=== PATIENT | female | born 1965 | race Caucasian/White ===

== ENCOUNTER → 2016-07-29 | Outpatient (CLI) | payer OTHER ==
--- NOTE | 2016-08-01 08:04 | MR ---
EXAMINATION TYPE: MR brain wo/w con DATE OF EXAM: 07/29/2016 3:02 PM COMPARISON: MRI brain July 25, 2015 outside reviewed on outside PACS system. HISTORY: headache, vertigo, and white matter changes all per order. Additional symptoms of dizziness per patient. TECHNIQUE: Multiplanar, multisequence images of the brain and brainstem is performed without and with IV contras t, utilizing 16 mL intravenous MultiHance gadolinium contrast is administered intravenously. Demyeli nating disease protocol with additional Sagittal Flair sequence performed. FINDINGS: T2 Lesions Present : Yes Approximate Number of Lesions: 15-20 Locations Identified : Scattered predominantly deep white matter lesions. Size of Reference Lesion(s): 1. 0.5 cm x 0.3 cm x 0.4 cm on axial image 21 and sagittal image 7 left frontal subcortical lesion o r 2 adjacent lesions stable or slightly more prominent. Enhancing Lesion(s) Present: No Change from Prior: Suspect slight increase in number versus prior. Diffusion weighted images demonstrate no evidence of a recent infarct or other diffusion abnormality. There is no worrisome extra-axial fluid collection. The ventricular system and cisternal spaces ar e normal in size and appearance. The brain volume is age appropriate. Midline structures demonstrate normal morphology. The craniocervical junction appears within normal limits. Post contrast images demonstrate no abnormal enhancement. The dural venous sinuses appear pa tent . There is moderate mucosal thickening involving ethmoid sinuses bilaterally redemonstrated. The globes are intact bilaterally. IMPRESSION: Mild nonspecific white matter changes felt likely slightly increased in number versus guilherme or exam as more lesions are identified or felt present. No new enhancing lesions are seen.
== END | disposition home or self-care (01) ==
LOC: RADMRIMAIN 13:34
PROVIDERS: ATTEND Psychiatry & Neurology Neurology
DX: R90.82 White matter disease, unspecified (principal)
CPT/HCPCS: 70553; A9577

== ENCOUNTER 2016-08-04 06:51 | Day surgery (SDC) | payer OTHER ==
[2016-08-01 10:41] VITALS: BMI 32.9
[~2016-08-04 06:51] MED LIST: LACTATED RINGERS 1,000 ML IV SCH
[2016-08-04 07:07] VITALS: RESP 18
[2016-08-04] MEDS ORDERED: IV FLUID CONTINUATION 1,000 ML IV ONE (07:07)
[2016-08-04] MEDS ORDERED: PROPOFOL 10 MG/ML 20 ML VIAL IV ONE (07:39)
--- NOTE | 2016-08-04 07:45 | P.GSHP ---
History of Present Illness H&P Date: 08/04/16 Chief Complaint: GERD This a 51-year-old female who's had long-standing problems with reflux esophagitis. Patient presents today for EGD. - Constitutional Constitutional: Reports as per HPI Past Medical History Additional Past Medical History / Comment(s): vertigo, motion sickness History of Any Multi-Drug Resistant Organisms: None Reported Past Surgical History: Cholecystectomy Additional Past Surgical History / Comment(s): colonscopy ; EGD Past Anesthesia/Blood Transfusion Reactions: Motion Sickness, Postoperative Nausea & Vomiting (PONV) Past Psychological History: No Psychological Hx Reported Smoking Status: Current every day smoker Past Alcohol Use History: Rare Additional Past Alcohol Use History / Comment(s): smoke: "about 3/4 of a ppd" Past Drug Use History: Marijuana Additional Drug Use History / Comment(s): daily - Past Family History Mother Family Medical History: No Reported History Father Family Medical History: Cancer Additional Family Medical History / Comment(s): CA: lung Medications and Allergies Home Medications Medication Instructions Recorded Confirmed Type HYDROcodone/APAP 10-325MG [[place] 1 tab PO Q4HR PRN 08/01/16 08/04/16 History 10-325] Allergies Allergy/AdvReac Type Severity Reaction Status Date / Time No Known Allergies Allergy Verified 08/04/16 07:04 Surgical - Exam Vital Signs Pulse Resp BP Pulse Ox 67 18 125/79 98 08/04/16 07:05 08/04/16 07:05 08/04/16 07:05 08/04/16 07:05 - General well developed, no distress - Eyes PERRL - ENT normal pinna - Neck no masses - Respiratory normal expansion - Cardiovascular Rhythm: regular - Abdomen Abdomen: soft, non tender Assessment and Plan Plan: GERD. We'll perform EGD.
--- NOTE | 2016-08-04 07:52 | P.OP ---
Date of Procedure: 08/04/16 Preoperative Diagnosis: GERD Postoperative Diagnosis: Hiatal hernia Esophagitis Procedure(s) Performed: EGD Anesthesia: MAC Surgeon: Gonzalo Claire Pathology: other (Esophagus) Condition: stable Disposition: PACU Description of Procedure: Patient's placed on the endoscopy table in the lateral position. She received IV sedation. The gastric scope was then placed oropharynx and passed into the esophagus and into the stomach. The scope was then placed through the pylorus. The first and second portion of the duodenumAppeared normal. Scope was then brought back the antrum and this appeared appeared normal. The scope was then retroflexed and the remainder of the stomach appeared normal. There was a moderate size hiatal hernia. The GE junction was at 38 cm. The distal esophagus was mildly inflamed and a biopsies performed. The proximal esophagus appeared normal. Scope was then withdrawn from patient.
[2016-08-04 08:31] VITALS: BP 114/66; PULSE 66
== END 2016-08-04 08:41 | disposition home or self-care (01) ==
LOC: ORWHC2ENDO 06:51
PROVIDERS: ATTEND Surgery
DX: K21.0 Gastro-esophageal reflux disease with esophagitis (principal); K44.9 Diaphragmatic hernia without obstruction or gangrene; F17.200 Nicotine dependence, unspecified, uncomplicated; Z79.891 Long term (current) use of opiate analgesic
CPT/HCPCS: 88305; 43239; J2704

== ENCOUNTER → 2016-08-11 | Outpatient (CLI) | payer OTHER ==
--- NOTE | 2016-08-12 08:41 | MM ---
Reason for exam: screening (asymptomatic). Last mammogram was performed 1 year ago. History: Patient is postmenopausal and has history of other cancer at age 45. Family history of premenopausal breast cancer in maternal aunt at age 38. Benign left mammotome panel of the left breast, September 09, 2011. Took hormonal contraceptives for 6 years. Physical Findings: A clinical breast exam by your physician is recommended on an annual basis and results should be correlated with mammographic findings. MG Screening Mammo w CAD Bilateral CC and MLO view(s) were taken. Prior study comparison: August 06, 2015, bilateral MG screening mammo w CAD. August 04, 2014, bilateral MG screening mammo w CAD. August 02, 2013, bilateral digital screening mammo w/CAD. There are scattered fibroglandular densities. Previous mammotome biopsy in the left breast. No significant changes when compared with prior studies. ASSESSMENT: Negative, BI-RAD 1 RECOMMENDATION: Routine screening mammogram of both breasts in 1 year.
== END | disposition home or self-care (01) ==
LOC: RADMAMWWP 13:32
PROVIDERS: ATTEND Family Medicine
DX: Z12.31 Encounter for screening mammogram for malignant neoplasm of breast (principal); Z80.3 Family history of malignant neoplasm of breast

== ENCOUNTER 2016-08-18 06:27 | Observation (INO) | payer OTHER ==
[2016-08-15 09:19] VITALS: BMI 32.9
[~2016-08-18 06:27] MED LIST changes: +DEXAMETHASONE SOD PHOSPHATE 10 MG/ML 1 ML VIAL IV ONE; +HEPARIN SODIUM,PORCINE 5,000 UNIT/ML 1 ML VIAL SQ ONE; -LACTATED RINGERS 1,000 ML IV SCH; +MIDAZOLAM 2 MG/2 ML VIAL IV PRN; +ONDANSETRON 4 MG/2 ML VIAL IVP ONE; +ceFAZolin 2 GM in SODIUM CHLORIDE 0.9% 100 ML IVPB ONE
[2016-08-18] MEDS ORDERED: LIDOCAINE 1% 20 ML VIAL (10MG/ML) FOR IV START INTRADERMA ONE (07:10)
[2016-08-18] MEDS ORDERED: SCOPOLAMINE 1.5MG/72HR PATCH TRANSDERM ONE (07:15)
[2016-08-18 07:22] LABS: Basophils # (A) 0.1 k/uL (0-0.2); Basophils % (A) 1 %; CH 31.8; Eosinophils # (A) 0.3 k/uL (0-0.7); Eosinophils % (A) 3 %; HCT 43.1 % (34.0-46.0); HDW 2.24; HGB 14.1 gm/dL (11.4-16.0); Luc # (Auto) 0.35; Luc % (Auto) 4; Lymphocytes # (A) 2.4 k/uL (1.0-4.8); Lymphocytes % (A) 26 %; MCH 30.6 pg (25.0-35.0); MCHC 32.6 g/dL (31.0-37.0); MCV 93.8 fL (80.0-100.0); Mean Platelet Volume 6.8; Monocytes # (A) 0.6 k/uL (0-1.0); Monocytes % (A) 7 %; Neutrophils # (A) 5.3 k/uL (1.3-7.7); Neutrophils % (A) 59 %; RDW 13.1 % (11.5-15.5); WBC (Perox) 8.29
[2016-08-18] MEDS: LACTATED RINGERS 1,000 ML IV SCH (07:23)
--- NOTE | 2016-08-18 07:52 | P.GSHP ---
History of Present Illness H&P Date: 08/18/16 Chief Complaint: GERD This a 51-year-old female referred from Dr. Eliceo Ness. The patient has had long-standing problems with reflux esophagitis. The patient underwent recent EGD is found have evidence of esophagitis. Patient has been well informed on the procedure of laparoscopic Sánchez fundoplication. The patient is aware the risk of the conversion to the open procedure, risk of injury to the stomach, liver and spleen. The patient is also a risk of recurrent GERD and dysphagia symptoms. The patient understands there is a postoperative diet of full liquids for 2 weeks after surgery. - Constitutional Constitutional: Reports as per HPI Past Medical History Past Medical History: COPD, GERD/Reflux Additional Past Medical History / Comment(s): vertigo, motion sickness History of Any Multi-Drug Resistant Organisms: None Reported Past Surgical History: Cholecystectomy, Tubal Ligation Additional Past Surgical History / Comment(s): coloscopy with polyp removal "they remove 2-3 everytime i have this done" Past Anesthesia/Blood Transfusion Reactions: No Reported Reaction, Motion Sickness, Postoperative Nausea & Vomiting (PONV) Past Psychological History: No Psychological Hx Reported Smoking Status: Current every day smoker Past Alcohol Use History: None Reported Additional Past Alcohol Use History / Comment(s): smoke: "about 3/4 of a ppd" Past Drug Use History: Marijuana - Past Family History Mother Family Medical History: No Reported History Father Family Medical History: Cancer Additional Family Medical History / Comment(s): CA: lung Medications and Allergies Home Medications Medication Instructions Recorded Confirmed Type HYDROcodone/APAP 10-325MG [[place] 1 tab PO Q8HR PRN 08/01/16 08/15/16 History 10-325] Allergies Allergy/AdvReac Type Severity Reaction Status Date / Time No Known Allergies Allergy Verified 08/18/16 06:47 Surgical - Exam Vital Signs Temp Pulse Resp BP Pulse Ox 98.4 F 62 16 130/84 98 08/18/16 06:54 08/18/16 06:54 08/18/16 06:54 08/18/16 06:54 08/18/16 06:54 - General well developed, no distress - Eyes PERRL - ENT normal pinna - Neck no masses - Respiratory normal expansion - Cardiovascular Rhythm: regular - Abdomen Abdomen: soft, non tender Results - Labs 08/18/16 07:10 Assessment and Plan Plan: GERD. We'll perform laparoscopic cholecystectomy.
[2016-08-18] MEDS ORDERED: VECURONIUM 10 MG VIAL IV ONE (08:00)
[2016-08-18] MEDS ORDERED: KETOROLAC 30 MG/ML 1 ML VIAL ONE (08:00)
[2016-08-18] MEDS ORDERED: PROPOFOL 10 MG/ML 20 ML VIAL IV ONE (08:00)
[2016-08-18] MEDS ORDERED: SUCCINYLCHOLINE CHLORIDE 100 MG/5 ML SYR IV ONE (08:00)
[2016-08-18] MEDS ORDERED: fentaNYL (PF) 50 MCG/ML 2 ML AMP ONE (08:00)
[2016-08-18] MEDS ORDERED: MIDAZOLAM 2 MG/2 ML VIAL ONE (08:00)
[2016-08-18] MEDS ORDERED: HYDROmorphone (PF) 1 MG/ML ONE (08:00)
[2016-08-18] MEDS ORDERED: LIDOCAINE 1% INJ 10MG/ML (20 ML MDV) ONE (08:00)
[2016-08-18] MEDS ORDERED: GLYCOPYRROLATE 0.2 MG/ML 2 ML VIAL ONE (08:00)
[2016-08-18] MEDS ORDERED: NEOSTIGMINE 1 MG/ML 10 ML VIAL ONE (08:00)
[2016-08-18] MEDS ORDERED: BUPIVACAIN-EPI 0.25%-1:200,000 30 ML VIAL SQ ONE (08:38)
[2016-08-18] MEDS ORDERED: NALOXONE 0.4 MG/ML 1 ML VIAL IV PRN (09:13)
[2016-08-18] MEDS ORDERED: ACETAMINOPHEN TAB 325 MG TAB PO PRN (09:13)
[2016-08-18] MEDS ORDERED: traMADol 50 MG TAB PO PRN (09:13)
[2016-08-18] MEDS ORDERED: HYDROcodone/APAP 5-325MG 1 EACH TAB PO PRN (09:13)
[2016-08-18] MEDS ORDERED: HYDROmorphone 1 MG/ML 1 ML SYRINGE IVP PRN (09:13)
[2016-08-18] MEDS ORDERED: ONDANSETRON 4 MG/2 ML VIAL IVP PRN (09:13)
--- NOTE | 2016-08-18 09:17 | P.OP ---
Date of Procedure: 08/18/16 Preoperative Diagnosis: GERD Postoperative Diagnosis: GERD Procedure(s) Performed: Laparoscopic Sánchez fundoplication Anesthesia: MAC Surgeon: Gonzalo Claire Estimated Blood Loss (ml): 5 Pathology: none sent Condition: stable Disposition: PACU Description of Procedure: The patient was placed on the operating table in the supine position. The patient received general anesthesia. And was placed in dorsal lithotomy position. The patient was prepped and draped in the usual sterile fashion. The skin incision sites were anesthetized with 1% local Xylocaine. The skin was incised in the left periumbilical area and then using a blade less 5 mm trocar under direct visualization panel cavity was entered. After adequate insufflation the laparoscope was then placed into the peritoneal cavity. Next a 5 mm trochars placed in the right epigastric position. Another 5 millimeter trocar the right lateral position. Another 5 millimeter trocar in the left lateral position a 5 mm trocar is placed in the left epigastric position. And then the initial 5 mm trocar was exchanged for a 10 mm trocar. The left lateral lobe liver was retracted. The hernia was seen. The crural defect was then dissected using the Harmonic scissors device. A 360 crural dissection was performed the esophagus stomach was reduced back into the peritoneal Cavity. The crural defect was then closed using 2-0 Ethibond suture. Next the fundus of the stomach was mobilized using the [place] scissors device. and then a 58-[place] bougie dilator was placed oropharynx passed into the esophagus and stomach the fundal plication wrap was then performed by grasping the fundus posteriorly and bringing it around the esophagus and stomach fundoplication was then performed using 2-0 Ethibond suture. Care was taken that the fundal location rested over top of the intra-abdominal esophagus. There was no injury seen to the stomach or esophagus. The dilator was then withdrawn. The abdomen was irrigated there is no bleeding seen. The trochars were then withdrawn and then skin incision sites were closed using 3-0 Monocryl suture Steri-Strips are applied. Patient thought procedure well and sent to recovery room in stable condition.
[2016-08-18] MEDS: LACTATED RINGERS 1,000 ML IV ONE ×2 (09:50→10:06)
[2016-08-18] MEDS: HYDROmorphone 1 MG/ML 1 ML SYRINGE IVP PRN ×2 (09:59→10:10)
[2016-08-18] MEDS: KETOROLAC 30 MG/ML 1 ML VIAL IVP SCH ×3 (11:11→22:18)
--- NOTE | 2016-08-18 14:06 | P.CONS ---
History of Present Illness - Reason for Consult Consult date: 08/18/16 Medical management Requesting physician: Gonzalo Claire - History of Present Illness A 51-year-old female being seen at the request of the attending for medical eval for medical management. Patient is well known to Dr. Caitlyn whaley. Patient is postop laparoscopic sánchez fundoplication for persistent symptomatic esophageal reflux disease failed outpatient treatment. Patient states that "for most of my life since age of 16 I have been bothered by reflux symptoms have tried various [id number] products with no relief patient presented on the day of admission to undergo an elective surgical approach to addressing symptomatic esophageal reflux. Patients being seen postoperatively indicates pain medication effective for pain control. Patient states passing gas no stool with some abdominal discomfort at the surgical site abdomen soft surgical dressings dry Review of Systems Essentially unremarkable except as mentioned in the present illness Past Medical History Past Medical History: COPD, GERD/Reflux Additional Past Medical History / Comment(s): vertigo, motion sickness History of Any Multi-Drug Resistant Organisms: None Reported Past Surgical History: Cholecystectomy, Tubal Ligation Additional Past Surgical History / Comment(s): coloscopy with polyp removal "they remove 2-3 everytime i have this done" Past Anesthesia/Blood Transfusion Reactions: No Reported Reaction, Motion Sickness, Postoperative Nausea & Vomiting (PONV) Past Psychological History: No Psychological Hx Reported Smoking Status: Current every day smoker Past Alcohol Use History: None Reported Additional Past Alcohol Use History / Comment(s): smoke: "about 3/4 of a ppd" Past Drug Use History: Marijuana - Past Family History Mother Family Medical History: No Reported History Father Family Medical History: Cancer Additional Family Medical History / Comment(s): CA: lung Medications and Allergies Home Medications Medication Instructions Recorded Confirmed Type HYDROcodone/APAP 10-325MG [[place] 1 tab PO Q8HR PRN 08/01/16 08/18/16 History 10-325] Allergies Allergy/AdvReac Type Severity Reaction Status Date / Time No Known Allergies Allergy Verified 08/18/16 10:45 Physical Exam Vitals: Vital Signs Temp Pulse Pulse Resp BP Pulse Ox 08/18/16 10:30 70 16 140/79 90 L 08/18/16 10:11 68 16 158/70 98 08/18/16 09:56 95 16 161/72 92 L 08/18/16 09:41 60 16 163/88 100 04/13/17 09:26 97.4 F L 95 16 166/78 96 08/18/16 06:54 98.4 F 62 16 130/84 98 Intake and Output 08/17/16 08/18/16 08/18/16 22:59 06:59 14:59 Intake Total 1300 Output Total 5 Balance 1295 Intake: IV 1300 Output: Estimated Blood Loss 5 GENERAL APPEARANCE: 51-year-old female patient is alert, oriented, in no acute distress. Resting in bed appears in no acute distress VITAL SIGNS: Reviewed HEENT: Head is normocephalic and atraumatic. Pupils are equal and reactive. The nares are patent. Oropharynx is clear without lesions. NECK: Supple without lymphadenopathy. Traches midline. HEART: S1, S2. Regular rate and rhythm. Denying chest pain LUNGS: No crackles or wheezes are heard. Adequate air movement bilaterally no shortness of breath no cough ABDOMEN: Soft, dressings to surgical site dry slight tenderness at surgical site nondistended with good bowel sounds. No peritoneal signs. No palpable organomegaly or masses. No stool states passing gas EXTREMITIES: Normal skin color and turgor. No cyanosis, rash, ulceration, clubbing or edema. Radial pedal pulses are 2/4 bilaterally. NEUROLOGICAL: No focal deficits. Strength and sensation are grossly intact. Results CBC & Chem 7: 08/18/16 07:10 Assessment and Plan Plan: Impression Postop laparoscopic Sánchez fundoplication done on August 18 for symptomatic esophageal reflux disease History of esophageal reflux Current every day smoker greater than a 20 year history three fourths of a pack daily with probable COPD undiagnosed History of colon polyps colonoscopy done July 2015 unremarkable findings Plan Continue postop surgical care per surgical service Will follow and address medical issues as they arise DVT and GI prophylaxis Increase activity to the level of tolerance IV fluid for hydration Thank you for this kind referral and the opportunity participate in the medical care of your patient depending on progress further recommendations will be made The above dictated assessment and findings were discussed with dr concepcion covering for Dr. Caitlyn Rhodes and the plan of care have been dictated as directed. Lilian Mckeon nurse practitioner acting as a scribe for dr concepcion
--- NOTE | 2016-08-18 15:51 | FL ---
EXAMINATION TYPE: FL UGI w esophagus DATE OF EXAM: 08/18/2016 3:44 PM COMPARISON: NONE HISTORY: Post Marvel fundoplication TECHNIQUE: A single contrast UGI study is performed. FINDINGS: Contrast passes from the distal esophagus through the Marvel fundoplication with mild hesit luke. No extravasation of contrast is evident. No free air is noted during this examination. Overhead radiographs were obtained which are unremarkable. IMPRESSIONS: 1. Normal post Marvel fundoplication without obstruction or hesitancy. No extravasation.
[2016-08-18 22:24] VITALS: RESP 18
[2016-08-19] MEDS ORDERED: KETOROLAC 30 MG/ML 1 ML VIAL ONE (04:20)
[2016-08-19] MEDS: KETOROLAC 30 MG/ML 1 ML VIAL IVP SCH ×2 (07:39→10:15)
[2016-08-19] MEDS: LACTATED RINGERS 1,000 ML IV SCH (10:53)
[2016-08-19 13:11] VITALS: BP 115/76; PULSE 70; TEMP 98.3
--- NOTE | 2016-08-19 15:11 | P.DS ---
Providers Date of admission: 08/18/16 22:55 Expected date of discharge: 08/19/16 Attending physician: Gonzalo Claire Consults: 08/18/16 09:13 Consult Physician Routine Consulting Provider: Eliceo Brady Reason/Comments: Medical management Do you want consulting provider notified?: Yes Primary care physician: [facility] Course: This a 51-year-old female who underwent laparoscopic Sánchez fundal plication yesterday. Patient did quite well postoperatively.. Please see chart for details. Procedures: Laparoscopic Sánchez fundal plication Patient Condition at Discharge: Good Plan - Discharge Summary New Discharge Prescriptions: Docusate [Colace] 100 mg PO BID #20 capsule HYDROcodone/APAP 7.5-325MG [[place] 7.5] 1 each PO Q4H PRN #60 tab PRN Reason: Pain Discharge Medication List HYDROcodone/APAP 10-325MG [[place] 10-325] 1 tab PO Q8HR PRN 08/01/16 [History] Docusate [Colace] 100 mg PO BID #20 capsule 08/18/16 [Rx] HYDROcodone/APAP 7.5-325MG [[place] 7.5] 1 each PO Q4H PRN #60 tab 08/18/16 [Rx] Follow up Appointment(s)/Referral(s): Gonzalo Claire MD [STAFF PHYSICIAN] - 09/01/16 2:10 pm Activity/Diet/Wound Care/Special Instructions: Full liquid diet as instructed by [employer]. refer to diet sheet. no straws or carbonation (No Mountain Dew! :) no strenuous activity May shower. leave tape in place to puncture sites. Call office with any fever, chills, increased pain not covered with pain meds, redness or discolored drainage from puncture sites or any concerns. Last received Toradol at 10:15 Discharge Disposition: HOME SELF-CARE
== END 2016-08-19 13:03 | disposition home or self-care (01) ==
LOC: OR 06:27 → 6PED 09:19 → OR 22:54 → 6PED 22:55
PROVIDERS: ADMIT Surgery; ATTEND Surgery
DX: K21.9 Gastro-esophageal reflux disease without esophagitis (principal); F17.200 Nicotine dependence, unspecified, uncomplicated; Z90.49 Acquired absence of other specified parts of digestive tract
CPT/HCPCS: 81025; 85025; 74240; 43280; G0378 ×2; J2250; J1644; J1100; J2710; J0690; J2405; J2001; J3010; J1885 ×2; J1170; J0330; J2704; 96374; 96375

== ENCOUNTER → 2017-08-30 | Outpatient (CLI) | payer OTHER ==
--- NOTE | 2017-08-30 14:48 | XR ---
EXAMINATION TYPE: XR chest 2V DATE OF EXAM: 08/30/2017 COMPARISON: Prior chest x-ray dated 07/24/2013 HISTORY: COPD TECHNIQUE: Frontal and lateral views of the chest are obtained. FINDINGS: There is no focal air space opacity, pleural effusion, or pneumothorax seen. The cardiac silhouette size is stable. The osseous structures are intact. Surgical clips present in the right u pper quadrant. IMPRESSION: No acute cardiopulmonary process. Stable exam.
--- NOTE | 2017-08-31 09:58 | MM ---
Reason for exam: screening (asymptomatic). Last mammogram was performed 1 year and 1 month ago. History: Patient is postmenopausal and has history of other cancer at age 45. Family history of premenopausal breast cancer in maternal aunt at age 38. Benign left mammotome panel of the left breast, September 09, 2011. Took hormonal contraceptives for 6 years. Physical Findings: A clinical breast exam by your physician is recommended on an annual basis and results should be correlated with mammographic findings. MG Screening Mammo w CAD Bilateral CC and MLO view(s) were taken. Prior study comparison: August 11, 2016, bilateral MG screening mammo w CAD. August 06, 2015, bilateral MG screening mammo w CAD. The breast tissue is heterogeneously dense. This may lower the sensitivity of mammography. Left biopsy marker noted. No significant changes when compared with prior studies. ASSESSMENT: Negative, BI-RAD 1 RECOMMENDATION: Routine screening mammogram of both breasts in 1 year.
== END | disposition home or self-care (01) ==
LOC: RADMAMWWP 12:48
PROVIDERS: ATTEND Family Medicine
DX: Z12.31 Encounter for screening mammogram for malignant neoplasm of breast (principal); J44.9 Chronic obstructive pulmonary disease, unspecified; F17.200 Nicotine dependence, unspecified, uncomplicated
CPT/HCPCS: 71046; 77067

== ENCOUNTER → 2018-02-08 | Outpatient (CLI) | payer OTHER ==
--- NOTE | 2018-02-08 10:27 | MR ---
EXAMINATION TYPE: MR lumbar spine wo con DATE OF EXAM: 02/08/2018 COMPARISON: NONE HISTORY: Low back pain TECHNIQUE: T1 and T2 axial and sagittal images of the lumbar spine are submitted. FINDINGS: There is no abnormal signal seen within the visualized spinal cord or paraspinal soft tissu es. Correlate with the numbering system utilized on this exam prior to any surgical intervention At L1-2 there is no disc herniation or canal stenosis. No foraminal encroachment At L2-3 there is mild hypertrophic change of the facets there is circumferential disc bulging and mil d bilateral foraminal encroachment but no disc herniation or canal stenosis At L3-4 there is a broad-based central disc protrusion with a more focal left paracentral disc hernia tion resulting in moderate compression thecal sac. Hypertrophic change of the facets and ligamentum f lavum contribute to central canal stenosis. There is moderate left foraminal encroachment this materi al extending laterally to the left. At L4-5 there is degenerative disc disease with circumferential disc bulging but no disc herniation. There is mild bilateral foraminal encroachment with no central stenosis. Facet arthropathy and ligame ntum flavum hypertrophy noted. At L5-S1 there is advanced facet arthropathy. No disc herniation. No Canal stenosis. Disc desiccation is seen. Circumferential disc bulging greater laterally to the right with mild right-sided foraminal encroachment. IMPRESSION: 1. Correlate with the numbering system utilized on today's exam prior to any surgical intervention. 2. Multilevel degenerative disc disease with disc protrusion and more focal left paracentral disc her niation L3-L4 resulting in compression of the thecal sac, central stenosis and moderate left foramina l encroachment. 3. Multilevel disc bulging resulting in multilevel foraminal encroachment as discussed above.
--- NOTE | 2018-02-08 11:01 | MR ---
EXAMINATION TYPE: MR brain wo/w con DATE OF EXAM: 02/08/2018 COMPARISON: 07/29/2016 HISTORY: MS TECHNIQUE: Multiplanar, multisequence images of the brain and brainstem is performed without and with IV contras t, utilizing 7 mL intravenous Gadavist . FINDINGS: Diffusion weighted images demonstrate no evidence of a recent infarct or other diffusion ab normality The ventricular system and cisternal spaces are normal in size and appearance. The brain v olume is age appropriate. Midline structures demonstrate normal morphology. The craniocervical junction appears within normal limits. Post contrast images demonstrate no abnormal enhancement. The dural venous sinuses appear pa tent. Partially empty sella turcica incidentally noted. There appear to be Thornwaldt cyst in the pos terior nasopharynx. Changes of chronic sinusitis noted. WHITE MATTER: T2 Lesions Present : Yes Approximate Number of Lesions: 15-20 Locations Identified : Scattered predominantly deep white matter lesions. Size of Reference Lesion(s): 1. 0.5 cm x 0.3 cm x 0.4 cm left frontal subcortical lesion or 2 adjacen t lesions stable Enhancing Lesion(s) Present: No Change from Prior: Suspect slight increase in number versus prior. IMPRESSION: 1. Stable nonspecific white matter changes. No interval change in size, number or morphology. No enha ncing lesions. 2. Changes of chronic sinusitis. 3. Multiple Thornwaldt cysts.
== END | disposition home or self-care (01) ==
LOC: RADMRIMAIN 08:35
PROVIDERS: ATTEND Psychiatry & Neurology Neurology
DX: R90.82 White matter disease, unspecified (principal); M48.061 Spinal stenosis, lumbar region without neurogenic claudication; M51.26 Other intervertebral disc displacement, lumbar region; M51.36 Other intervertebral disc degeneration, lumbar region
CPT/HCPCS: 70553; 72148; A9581

== ENCOUNTER → 2018-09-12 | Outpatient (CLI) | payer OTHER ==
--- NOTE | 2018-09-13 11:38 | MM ---
Reason for exam: screening (asymptomatic). Last mammogram was performed 1 year ago. History: Patient is postmenopausal and has history of other cancer at age 45. Family history of premenopausal breast cancer in maternal aunt at age 38. Benign left mammotome panel of the left breast, September 09, 2011. Took hormonal contraceptives for 6 years. Physical Findings: A clinical breast exam by your physician is recommended on an annual basis and results should be correlated with mammographic findings. MG Screening Mammo w CAD Bilateral CC and MLO view(s) were taken. Prior study comparison: August 30, 2017, bilateral MG screening mammo w CAD. August 11, 2016, bilateral MG screening mammo w CAD. The breast tissue is heterogeneously dense. This may lower the sensitivity of mammography. There are benign appearing round calcifications in the right breast. Previous mammotome biopsy in the left breast. There is no discrete abnormality. ASSESSMENT: Benign, BI-RAD 2 RECOMMENDATION: Routine screening mammogram of both breasts in 1 year.
== END ==
LOC: RADMAMWWP 15:47
PROVIDERS: ATTEND Family Medicine
DX: Z12.31 Encounter for screening mammogram for malignant neoplasm of breast (principal)
CPT/HCPCS: 77067

== ENCOUNTER → 2020-09-23 | Outpatient (CLI) | payer OTHER ==
--- NOTE | 2020-09-28 09:35 | MM ---
Reason for exam: screening (asymptomatic). Last mammogram was performed 2 years ago. History: Patient is postmenopausal and has history of other cancer at age 45. Family history of premenopausal breast cancer in maternal aunt at age 38. Benign left mammotome panel of the left breast, September 09, 2011. Took hormonal contraceptives for 6 years. Physical Findings: A clinical breast exam by your physician is recommended on an annual basis and results should be correlated with mammographic findings. MG Screening Mammo w CAD Bilateral CC and MLO view(s) were taken. Prior study comparison: September 12, 2018, bilateral MG screening mammo w CAD. August 30, 2017, bilateral MG screening mammo w CAD. There are scattered fibroglandular densities. Previous mammotome biopsy in the left breast. ASSESSMENT: Benign, BI-RAD 2 RECOMMENDATION: Routine screening mammogram of both breasts in 1 year.
== END | disposition home or self-care (01) ==
LOC: RADMAMWWP 10:49
PROVIDERS: ATTEND Family Medicine
DX: Z12.31 Encounter for screening mammogram for malignant neoplasm of breast (principal); Z80.3 Family history of malignant neoplasm of breast; Z78.0 Asymptomatic menopausal state
CPT/HCPCS: 77067

== ENCOUNTER → 2022-05-09 | Outpatient (CLI) | payer OTHER ==
--- NOTE | 2022-05-09 17:03 | BD ---
EXAMINATION TYPE: Axial Bone Density DATE OF EXAM: 05/09/2022 COMPARISON: BASELINE BONE DENSITY CLINICAL HISTORY: 57 years year old Female. ICD-10 CODE: Z78.0 POST MENOPAUSAL WITHOUT HRT Height: 60.05 Weight: 152 FRAX RISK QUESTIONS: Current Tobacco Use: YES RISK FACTORS HISTORY OF: Postmenopausal woman: YES, AT 51 Hyperparathyroidism: NO Adrenal Insufficiency: NO MEDICATIONS: Prednisone or other steroids: YES, FOR 3 WEEKS AND ON AND OFF IN THE PAST Additional Medications: REFLUX MEDS, Additional History: REFLUX, SICK RIGHT NOW , ON STEROIDS, ORAL AND INHALER EXAM MEASUREMENTS: Bone mineral densitometry was performed using the [employer] System. Bone mineral density as measured about the Lumbar spine is: ----- L1-L4(G/cm2): 1.165 T Score Values are as follows: ----- L1: -0.8 ----- L2: -1.0 ----- L3: 0.2 ----- L4: 0.7 ----- L1-L4: -0.1 Bone mineral density FIRST DEXA STUDY AT [facility] Bone mineral density about the R hip (g/cm2): 0.930 Bone mineral density about the L hip (g/cm2): 0.966 T Score values are as follows: -----R Neck: -0.6 -----L Neck: -0.8 -----R Total: -0.6 -----L Total: -0.3 Bone mineral density FIRST DEXA STUDY AT [facility] FRAX%s: The graph provided illustrates a 9.2%ance for a major osteoporotic fx and a 0.8%ance for the hips probability for fx in 10 years time. IMPRESSION: Normal (Values between +1 and -1 indicate normal bone mass). Consider repeating this study in 5 year s or sooner if there is some new clinical indication. NOTE: T-SCORE=SD OF THE YOUNG ADULT MEAN.
--- NOTE | 2022-05-10 08:45 | MM ---
Reason for Exam: Screening (asymptomatic). Last mammogram was performed 1 year(s) and 8 month(s) ago. Patient History: Menarche at age 10. First Full-Term at age 27. Postmenopausal. Hormonal Contraceptives for 6 years until age 23. 09/09/2011, Benign Core Biopsy on the left side. Maternal aunt had breast cancer, age 38. Risk Values: [place] 5 year model risk: 1.8%. NCI Lifetime model risk: 11.4%. Prior Study Comparison: 08/30/2017 Bilateral Screening Mammogram, [facility]. 09/12/2018 Bilateral Screening Mammogram, [facility]. 09/23/2020 Bilateral Screening Mammogram, [facility]. Tissue Density: There are scattered fibroglandular densities. Findings: Analyzed By CAD. Left breast biopsy clip. There is no suspicious group of microcalcifications or new suspicious mass in either breast. Overall Assessment: Negative, BI-RAD 1 Management: Screening Mammogram of both breasts in 1 year. A clinical breast exam by your physician is recommended on an annual basis and results should be correlated with mammographic findings. [facility] will attempt to contact patient to return for supplemental views and ultrasound if indicated. Electronically signed and approved by: Eduardo Eubanks DO
== END | disposition home or self-care (01) ==
LOC: RADBDWWP 13:30
PROVIDERS: ATTEND Family Medicine
DX: Z12.31 Encounter for screening mammogram for malignant neoplasm of breast (principal); Z80.3 Family history of malignant neoplasm of breast; Z78.0 Asymptomatic menopausal state; Z79.52 Long term (current) use of systemic steroids
CPT/HCPCS: 77067; 77080

== ENCOUNTER → 2022-05-23 | Outpatient (CLI) | payer OTHER ==
--- NOTE | 2022-05-24 11:47 | CT ---
EXAMINATION TYPE: CT abdomen pelvis w con CT DLP: 964 mGycm, Automated exposure control for dose reduction was used. DATE OF EXAM: 05/23/2022 5:06 PM COMPARISON: None CLINICAL INDICATION:Female, 57 years old with history of R10.32 LLQ pain; low abd pain ; bloating, wo rsens throughout the day. TECHNIQUE: Axial CT of the abdomen and pelvis. Sagittal and coronal reformats were created on a [employer] workstation. Contrast used:100ML mL of Isovue 300 with IV Contrast, Oral contrast used: with Oral Contrast FINDINGS: LOWER CHEST: Unremarkable ABDOMEN LIVER: Mild decreased attenuation of the liver parenchyma. GALLBLADDER AND BILE DUCTS: The gallbladder surgically absent. PANCREAS: Unremarkable. SPLEEN: Small splenule is present. ADRENAL GLANDS: Unremarkable. KIDNEYS AND URETERS: No evidence of hydronephrosis or renal calculus. The ureters are unremarkable. PELVIS BLADDER: Unremarkable REPRODUCTIVE: Unremarkable. ABDOMEN & PELVIS STOMACH AND BOWEL: No evidence of bowel obstruction. Gaseous distention of small and large loops of b owel. No obvious transition point. The appendix is normal. There is postsurgical change the gastroeso phageal junction. PERITONEUM/RETROPERITONEUM: No evidence of pneumoperitoneum or free fluid. . VASCULATURE: No evidence of aortic aneurysm. Atherosclerosis of the arterial vasculature. MUSCULOSKELETAL: No acute osseous abnormalities, multilevel disc degeneration changes throughout the spine. LYMPH NODES: No gross evidence for lymphadenopathy. SOFT TISSUE/ABDOMINAL WALL: Small fat-containing umbilical hernia. IMPRESSION: 1. Gaseous mild dilation of small and large loops of bowel. No obvious transition point this concern for small bowel obstruction. Correlate for ileus. Consider dedicated small bowel follow-through if t his concern for partial bowel obstruction. 2. No definitive acute intra-abdominal process to explain the patient's left lower quadrant pain. 3. Post surgical changes to the gastroesophageal junction. 4. Mild hepatic steatosis.
== END | disposition home or self-care (01) ==
LOC: RADCTMAIN 14:25
PROVIDERS: ATTEND Family Medicine
DX: K76.0 Fatty (change of) liver, not elsewhere classified (principal); K63.89 Other specified diseases of intestine; Z98.890 Other specified postprocedural states
CPT/HCPCS: 74177; Q9967 ×2

== ENCOUNTER → 2024-04-18 | Outpatient (CLI) | payer OTHER ==
[2024-04-18 19:13] LABS: Basophils # (A) 0.07 X 10*3/uL (0.00-0.10); Basophils % (A) 0.6 %; Eosinophils # (A) 0.29 X 10*3/uL (0.04-0.35); Eosinophils % (A) 2.6 %; HCT 37.5 % (37.2-46.3); HGB 12.4 g/dL (12.0-15.0); Lymphocytes # (A) 2.24 X 10*3/uL (0.90-5.00); Lymphocytes % (A) 19.9 %; MCH 31.2 pg (27.0-32.0); MCHC 33.1 g/dL (32.0-37.0); MCV 94.5 FL (80.0-97.0); Monocytes # (A) 1.39 X 10*3/uL (0.20-1.00); Monocytes % (A) 12.3 %; NRBC Per 100 WBC 0 X 10*3/uL (0.00-0.01); Neutrophils # (A) 7.12 X 10*3/uL (1.80-7.70); Neutrophils % (A) 63.3 %; Platelet Count 360 X 10*3/uL (140-440); RBC 3.97 X 10*6/uL (4.10-5.20); RDW 12.8 % (11.5-14.5); WBC 11.26 X 10*3/uL (4.50-10.00)
== END | disposition home or self-care (01) ==
LOC: LABPAT 14:32
PROVIDERS: ATTEND Surgery
DX: Z01.818 Encounter for other preprocedural examination (principal)
CPT/HCPCS: 36415; 85025; 86850; 86900; 86901; 93005

== ENCOUNTER 2024-04-22 05:33 | Day surgery (SDC) | payer OTHER ==
[2024-04-22 06:17] VITALS: RESP 16; TEMP 97.4
[2024-04-22] MEDS: LACTATED RINGERS 1,000 ML IV SCH (06:33)
[2024-04-22] MEDS: ACETAMINOPHEN TAB 500 MG TAB PO PRN (06:33)
[2024-04-22] MEDS: DEXAMETHASONE SOD PHOSPHATE 4 MG/ML 1 ML VIAL IV ONE (06:34)
[2024-04-22] MEDS: ONDANSETRON 4 MG/2 ML VIAL IVP ONE (06:34)
[2024-04-22] MEDS: SCOPOLAMINE 1 MG/72 HR PATCH TRANSDERM ONE (06:35)
[2024-04-22] MEDS: LACTATED RINGERS 1,000 ML IV ONE (06:39)
[2024-04-22] MEDS: MIDAZOLAM 2 MG/2 ML VIAL IVP ONE (06:58)
[2024-04-22] MEDS ORDERED: MIDAZOLAM 2 MG/2 ML VIAL IV PRN (07:00)
--- NOTE | 2024-04-22 07:12 | P.ANPRN ---
Procedure Note - Anesthesia - Nerve Block Performed Bilateral Erector Spinae Single Time Out Performed: Yes Date of Procedure: 04/22/24 Procedure Start Time: 06:58 Procedure Stop Time: 07:03 Location of Patient: PreOp Indication: Acute Post-Operative Pain, Analgesia, Requested by Surgeon Sedation Type: Sedate with meaningful contact maintained Preparation: Sterile Prep Position: Prone Catheter: None Needle Types: Pajunk Needle Gauge: 21 Ultrasound used to visualize needle placement: Yes Ultrasound used to observe medication spread: Yes Injectate: 0.5% Ropivacaine (see comment for volume) (Ropiv 20ml+[id number], T11 needle level----Each side) Blood Aspirated: No Pain Paresthesia on Injection Noted: No Image Stored and Saved: Yes Events: Uneventful and Well Tolerated
[2024-04-22] MEDS: HEPARIN SODIUM,PORCINE 5,000 UNIT/ML 1 ML VIAL SQ PRN (07:17)
[2024-04-22] MEDS: LIDOCAINE 1%-EPI 1:100,000 20 ML VIAL SQ ONE ×2 (07:27→07:57)
[2024-04-22] MEDS ORDERED: fentaNYL (PF) 50 MCG/ML 2 ML AMP ONE (07:36)
[2024-04-22] MEDS ORDERED: SUCCINYLCHOLINE CHLORIDE 200 MG/10 ML VIAL IV ONE (07:36)
[2024-04-22] MEDS ORDERED: ROPIVACAINE 5 MG/ML 30 ML VIAL ONE (07:36)
[2024-04-22] MEDS ORDERED: LIDOCAINE 1% INJ 10MG/ML (20 ML MDV) ONE (07:36)
[2024-04-22] MEDS ORDERED: KETAMINE HCL IN 0.9 % NACL 50 MG/5 ML SYRINGE ONE (07:36)
[2024-04-22] MEDS ORDERED: GLYCOPYRROLATE 0.2 MG/ML 2 ML VIAL ONE (07:36)
[2024-04-22] MEDS ORDERED: PROPOFOL 10 MG/ML 20 ML VIAL IV ONE (07:36)
[2024-04-22] MEDS ORDERED: NEOSTIGMINE 1 MG/ML 10 ML VIAL ONE (07:36)
[2024-04-22] MEDS ORDERED: KETOROLAC 15 MG/ML 1 ML VIAL ONE (07:36)
[2024-04-22] MEDS ORDERED: ROCURONIUM 10 MG/ML (5 ML VIAL) IV ONE (07:36)
[2024-04-22] MEDS ORDERED: DEXAMETHASONE SOD PHOSPHATE 4 MG/ML 1 ML VIAL ONE (07:36)
--- NOTE | 2024-04-22 07:43 | P.GSHP ---
History of Present Illness H&P Date: 04/22/24 Chief Complaint: Right inguinal hernia This a 59-year-old female who has complaints of right inguinal pain and mass. Patient was in the office. Patient has reducible right inguinal hernia. She presents today for laparoscopic robotic assisted repair. Past Medical History Past Medical History: COPD, GERD/Reflux, Osteoarthritis (OA) Additional Past Medical History / Comment(s): vertigo, motion sickness, May 2022 shingles, covid, uti, constipation, colitis, anemia. Chronic back pain. hx of colon polyps; pt denies inhalers for COPD History of Any Multi-Drug Resistant Organisms: None Reported Past Surgical History: Cholecystectomy, Tubal Ligation, Uterine Ablation Additional Past Surgical History / Comment(s): colonoscopy with polyp removal, cataract surg Past Anesthesia/Blood Transfusion Reactions: Motion Sickness, Postoperative Nausea & Vomiting (PONV) Smoking Status: Current every day smoker - Past Family History Mother Family Medical History: No Reported History Father Family Medical History: Cancer Additional Family Medical History / Comment(s): CA: lung Medications and Allergies Home Medications Medication Instructions Recorded Confirmed Type HYDROcodone/APAP 10-325MG [[facility] 1 tab PO Q8HR PRN 08/01/16 04/19/24 History 10-325] Allergies Allergy/AdvReac Type Severity Reaction Status Date / Time No Known Allergies Allergy Verified 04/22/24 06:10 Surgical - Exam Vital Signs Temp Pulse Resp BP Pulse Ox 97.4 F L 74 16 129/61 97 04/22/24 06:16 04/22/24 06:16 04/22/24 06:16 04/22/24 06:16 04/22/24 06:16 - General well developed, well nourished, no distress, moderate distress - Eyes PERRL - ENT normal pinna - Neck no masses - Respiratory normal expansion - Cardiovascular Rhythm: regular - Abdomen Abdomen: soft, non tender Hernia: inguinal (Reducible right inguinal hernia) Assessment and Plan Plan: Radial hernia. Will perform laparoscopic robotic assisted repair.
--- NOTE | 2024-04-22 08:49 | P.OP ---
Date of Procedure: 04/22/24 Preoperative Diagnosis: Right inguinal hernia Postoperative Diagnosis: Hernia Right inguinal lymphadenopathy Procedure(s) Performed: B laparoscopic robot-assisted pair of right inguinal hernia Laparoscopic excision of deep inguinal lymph node Anesthesia: DUSTINA Surgeon: Gonzalo Claire Estimated Blood Loss (ml): 5 Pathology: other (Lymph node) Condition: stable Disposition: PACU
[2024-04-22] MEDS: HYDROmorphone 0.5 MG/0.5 ML SYRINGE IVP PRN (09:20)
[2024-04-22] MEDS: IV FLUID CONTINUATION 1,000 ML IV ONE (09:25)
[2024-04-22 10:26] VITALS: BP 120/66; PULSE 75
== END 2024-04-22 11:10 | disposition home or self-care (01) ==
LOC: OR 05:33
PROVIDERS: ATTEND Surgery
DX: K40.90 Unilateral inguinal hernia, without obstruction or gangrene, not specified as recurrent (principal); G89.18 Other acute postprocedural pain; G89.29 Other chronic pain; J44.9 Chronic obstructive pulmonary disease, unspecified; K21.9 Gastro-esophageal reflux disease without esophagitis; M19.90 Unspecified osteoarthritis, unspecified site; F17.200 Nicotine dependence, unspecified, uncomplicated; Z86.0100 Personal history of colon polyps, unspecified; Z86.16 Personal history of COVID-19; Z90.49 Acquired absence of other specified parts of digestive tract; Z98.51 Tubal ligation status; Z87.440 Personal history of urinary (tract) infections
CPT/HCPCS: 49650; 64999; 88305; 88312; 88342; 88341; C1781; J2250; J0330; J1644; J1100; J2710; J0690; J2405; J2003; J3010; J2795; J1885; J2704; J1171; J1596

== ENCOUNTER → 2024-04-25 | Outpatient (CLI) | payer OTHER ==
--- NOTE | 2024-04-25 11:28 | CTL ---
EXAMINATION TYPE: CT Low Dose Lung DATE OF EXAM: 04/25/2024 9:55 AM COMPARISON: 12/29/2021 CLINICAL INDICATION: Female, 59 years old with history of Z12.2 ENCNTR SCREEN FOR MALIGNANT NEOPLASM OF RESP, PERSONAL HX OF NICOTINE DEPENDENCE 1PPD X 40YEARS CURRENT SMOKER, History of tobacco use. TECHNIQUE: Low Dose CT Lung Screening, Low dose computed tomography scan was performed through the est at 1 millimeter thick sections and reconstructed images in the coronal plane at 1 mm thick sectio ns. IV CONTRAST USED: None. SCREENING VISIT: Second CT DLP: 75.80 mGycm, Automated exposure control for dose reduction was used. CT CTDI: 2.1 mGy FINDINGS: CT DIAGNOSTIC QUALITY: Satisfactory LUNG NODULES: Not presentLeft lung: no nodules identified.Right lung: no nodules identified. LUNGS: COPD: Severity: None Fibrosis: Severity:None Lymph nodes: None Other findings: None RIGHT PLEURAL SPACE: Effusion: None Calcification: None Thickening: None Pneumothorax: None LEFT PLEURAL SPACE: Effusion: None Calcification: None Thickening: None Pneumothorax: None HEART: Heart Size: Mildly enlarged Coronary calcification: Mild Pericardial effusion: None OTHER FINDINGS: Upper abdomen: No significant abnormality Bony thorax: Degenerative changes Supraclavicular region: No significant abnormalityOther: No significant abnormalityI IMPRESSION: 1. No clinically significant pulmonary nodules. 2. Mild emphysema. There is pneumoperitoneum likely from recent cholecystectomy however. Clinical correlation advised. CT LUNG RAD AND CT CHEST RECOMMENDATION: Lung-Rad 1 Negative: Continue annual screening with LDCT in 12 months. S Modifier (other clinically significant findings): [facility], , 04/25/2024 11:26 AM
== END | disposition home or self-care (01) ==
LOC: RADCTMAIN 08:56
PROVIDERS: ATTEND Family Medicine
DX: Z12.2 Encounter for screening for malignant neoplasm of respiratory organs (principal); J43.9 Emphysema, unspecified; F17.210 Nicotine dependence, cigarettes, uncomplicated
CPT/HCPCS: 71271

== ENCOUNTER → 2024-06-10 | Outpatient (CLI) | payer OTHER ==
--- NOTE | 2024-06-11 06:30 | BD ---
EXAMINATION TYPE: Axial Bone Density DATE OF EXAM: 06/10/2024 CLINICAL HISTORY: 59 years old Female. ICD-10 CODE: N95.1 MENOPAUSAL AND FEMALE , Additional History : Height: 61.25 Weight: 134.6 FRAX RISK QUESTIONS: Alcohol (3 or more units per day): no Family History (Parent hip fracture): no Glucocorticoids (More than 3mos): no (Ex: prednisone, prednisolone, methylprednisolone, dexamethasone, and hydrocortisone). History of Fracture in Adulthood: no Secondary Osteoporosis: 1. Type 1 Diabetes: no 2. Hyperthyroidism: no 3. Menopause before 45: yes 4. Malnutrition: no 5. Chronic liver disease: no Rheumatoid Arthritis: no Current Tobacco Use: yes RISK FACTORS HISTORY OF: Hip Fracture (Right/Left): no Spine Fracture: no History of Wrist Fracture: no Surgery to Spine/Hip(right/left)/Wrist (right/left): no MEDICATIONS: Thyroid Medications: no Osteoporosis Medications: no EXAM MEASUREMENTS: Bone mineral densitometry was performed using the [employer] System. Bone mineral density as measured about the Lumbar spine is: ----- L1-L4(G/cm2): 1.249 T Score Values are as follows: ----- L1: -0.1 ----- L2: -1.0 ----- L3: 1.3 ----- L4: 1.7 ----- L1-L4: 0.6 Z Score Values are as follows: ----- L1: 1.0 ----- L2: 0.25 ----- L3: 2.5 ----- L4: 2.9 ----- L1-L4: 1.8 Bone mineral density has: increased 7.2 % since study of: 05/09/2022 Bone mineral density about the R hip (g/cm2): 0.958 Bone mineral density about the L hip (g/cm2): 0.879 T Score values are as follows: -----R Neck: -0.4 -----L Neck: -0.8 -----R Total: -0.4 -----L Total: -1.0 Z Score values are as follows: -----R Neck: 0.9 -----L Neck: 0.4 -----R Total: 0.5 -----L Total: -0.1 Bone mineral density has: decreased -3.1 % since study of: 05/09/2022 FRAX%s: The graph provided illustrates a 6.5% chance for a major osteoporotic fx and a 0.5% chance fo r the hips probability for fx in 10 years time. IMPRESSION: Normal (Values between +1 and -1 indicate normal bone mass). Consider repeating this study in 5 year s or sooner if there is some new clinical indication. NOTE: T-SCORE=SD OF THE YOUNG ADULT MEAN. [facility], , 06/11/2024 6:27 AM
--- NOTE | 2024-06-11 06:50 | MM ---
Reason for Exam: Screening (asymptomatic). Last mammogram was performed 2 year(s) and 1 month(s) ago. Patient History: Menarche at age 10. First Full-Term at age 27. Postmenopausal. Hormonal Contraceptives for 6 years until age 23. 09/09/2011, Benign Core Biopsy on the left side. Maternal aunt had breast cancer, age 38. Risk Values: [place] 5 year model risk: 1.9%. NCI Lifetime model risk: 10.9%. Prior Study Comparison: 09/12/2018 Bilateral Screening Mammogram, [facility]. 09/23/2020 Bilateral Screening Mammogram, [facility]. 05/09/2022 Bilateral MG screening mammo w CAD, [facility]. Tissue Density: There are scattered areas of fibroglandular density. Findings: Analyzed By CAD. Biopsy clip in the left breast is redemonstrated. Benign-appearing bilateral axillary lymph nodes are again seen. There is no suspicious group of microcalcifications or new suspicious mass in either breast. Overall Assessment: Benign, BI-RAD 2 Management: Screening Mammogram of both breasts in 1 year. . Patient should continue monthly self-breast exams. A clinical breast exam by your physician is recommended on an annual basis. This exam should not preclude additional follow-up of suspicious palpable abnormalities. Note on [place] scores and lifetime risk: 1. A [place] score greater than 3% is considered moderate risk. If this is the case, consider specialist referral to assess eligibility for a risk reducing agent. 2. If overall lifetime risk for the development of breast cancer is 20% or higher, the patient may qualify for future screening with alternating mammogram and breast MRI. [facility], , 06/11/2024 6:47 AM. Electronically signed and approved by: Yomi Moctezuma M.D.
== END | disposition home or self-care (01) ==
LOC: RADMAMWWP 15:12
PROVIDERS: ATTEND Obstetrics & Gynecology
DX: Z12.31 Encounter for screening mammogram for malignant neoplasm of breast (principal); R92.323 Mammographic fibroglandular density, bilateral breasts; Z80.3 Family history of malignant neoplasm of breast; Z78.0 Asymptomatic menopausal state
CPT/HCPCS: 77067; 77080